=== PATIENT | female | born 1975 | race Caucasian/White ===

== ENCOUNTER → 2017-05-17 | Outpatient (CLI) | payer OTHER ==
[2014-10-22 11:10] VITALS: BMI 36.3
[~2017-05-17] MED LIST: APIX5TAB PO; CHOL200074 PO; CINN500C12 PO; CRAN200C5 PO; ESC10 PO; ESCI20TA38 PO; GADOBENATE 529MG/1ML 15ML VIAL IVP ONE; GLUC100026 PO; HYDR2TAB4 PO; IBUP800T37 PO; MULT1TAB54 PO; NOR5 FT; OMEG300C PO; OXYC-373 PO; POTA99TA6 PO; TRAM-420 PO; VITA200C8 PO
--- NOTE | 2017-05-17 16:08 | RADIOLOGY IMAGING REPORT ---
FACILITY: [facility] - [place] PATIENT NAME: Lindsey Mittal : 1975 MR: [id number] V: [id number] EXAM DATE: ORDERING PHYSICIAN: YOBANI LAMAR TECHNOLOGIST: Location: [facility] - [place] Patient: Lindsey Mittal : 1975 Visit/Account:[id number] Date of Sevice: 05/17/2017 EXAMINATION: Lumbar spine MRI without IV contrast Lumbar spine MRI with IV contrast HISTORY: Low back pain. Lumbosacral radiculopathy. COMPARISON: 09/26/2013. TECHNIQUE: Multi-planar, multi-sequence lumbar spine MRI was performed before and after IV contrast. CONTRAST: 15 mL of IV MultiHance FINDINGS: Alignment: Normal. Vertebral marrow signal: Multiple small Schmorl's nodes. Otherwise negative. Distal thoracic cord: Negative. Conus: negative, terminates at L1-L2 Cauda equina: Negative. Paravertebral soft tissues: Postsurgical changes. Otherwise negative. Visualized abdominal and pelvic structures: Negative. Enhancement pattern: Mild enhancing granulation tissue in the left epidural space at L5-S1 surroundin g the left S1 nerve root. Disc Spaces: Lower thoracic spine: Mild degenerative changes without stenosis. L1-2: Mild to moderate disc height loss with minimal disc bulge. No significant stenosis. No signific ant change. L2-3: Negative. L3-4: Mild circumferential disc bulge and facet hypertrophy. No spinal canal stenosis. Mild bilateral neural foraminal stenosis. No significant change. L4-5: Left hemilaminectomy. Minimal disc bulge. Central annular fissure. Mild facet hypertrophy. No s be canal stenosis. Mild to moderate bilateral neural foraminal stenosis. No significant change. L5-S1: Left hemilaminectomy with mild enhancing granulation tissue in the left epidural space surroun ding the left S1 nerve root. Mild disc bulge with small central disc protrusion. Mild left facet hype rtrophy. No spinal canal or right neural foraminal stenosis. Mild left neural foraminal stenosis. Pos tsurgical changes are new compared with 09/26/2013. Otherwise no significant interval change. IMPRESSION: 1. New left hemilaminectomy at L5-S1 with mild granulation tissue in the left epidural space surround ing the left S1 nerve root. Otherwise no significant change compared with 09/26/2013. 2. Mild multilevel degenerative disc disease and facet hypertrophy. Report Dictated By: Nelson Chaparro MD at 05/17/2017 3:54 PM Report E-Signed By: Nelson Chaparro MD at 05/17/2017 4:04 PM WSN:[id number]
== END ==
LOC: MRI 13:38
PROVIDERS: ATTEND Family Medicine
DX: M43.26 Fusion of spine, lumbar region (principal); M19.90 Unspecified osteoarthritis, unspecified site
CPT/HCPCS: 36415; 72158; 82565; A9577